=== PATIENT | male | born 1975 | race African-American/Black ===

== ENCOUNTER 2018-04-28 17:09 | Emergency (ER) | payer OTHER ==
[~2018-04-28] VITALS: Ht 172.7 cm; Wt 90.7 kg
[2018-04-28 17:33] LABS: ABSOLUTE BASOPHIL COUNT 0.1 /CUMM (0.0-0.2); ABSOLUTE EOSINOPHIL COUNT 0.2 /CUMM (0.0-0.7); ABSOLUTE GRANULOCYTE CT 4.5 /CUMM (1.4-6.5); ABSOLUTE MONOCYTE COUNT 0.8 /CUMM (0.10-0.60); BASOPHIL % 0.6 % (0.0-2.0); EOSINOPHIL % 1.6 % (0-5); GRANULOCYTE % 48.2 % (42.2-75.2); HEMATOCRIT 46.7 % (42-52); MEAN CORPUSCULAR HGB 27.7 PG (27.0-31.0); MEAN CORPUSCULAR HGB CONC 33.9 G/DL (33.0-37.0); MEAN CORPUSCULAR VOLUME 81.6 FL (80.0-94.0); MEAN PLATELET VOLUME 7.6 FL (7.4-10.4); PLATELET COUNT 319 /CUMM (130-400); RBC DISTRIBUTION WIDTH 14.2 % (11.5-14.5); RED BLOOD CELL CT 5.72 /CUMM (4.70-6.10); WHITE BLOOD CELL COUNT 9.4 /CUMM (4.8-10.8)
[2018-04-28 17:41] LABS: ABSOLUTE LYMPH COUNT 3.8 /CUMM (1.2-3.4)
--- NOTE | 2018-04-28 18:32 | RADIOLOGY REPORT ---
EXAMINATION: XR CHEST CLINICAL INFORMATION: Chest pain COMPARISON: None TECHNIQUE: 2 views of the chest were obtained. FINDINGS: No focal consolidation, pulmonary edema, or pleural effusion. Normal cardiomediastinal silhouette. IMPRESSION: No acute cardiopulmonary findings.
[2018-04-28] MEDS ORDERED: PREVACID15 M1 PO (23:37)
--- NOTE | 2018-04-28 23:53 | ED CARDIAC/CP/PALPITATIONS ---
History of Present Illness General Chief Complaint: Chest Pain Stated Complaint: SIB FOR CP Source: patient Exam Limitations: no limitations Vital Signs & Intake/Output Vital Signs & Intake/Output Vital Signs Date Time Temp Pulse Resp B/P B/P Pulse O2 O2 Flow FiO2 Mean Ox Delivery Rate 04/28 2337 Room Air 04/28 2334 98.3 60 18 171/94 97 Room Air 04/28 1726 98.6 84 18 178/110 98 ED Intake and Output 04/29 0000 04/28 1200 Intake Total Output Total Balance Patient 200 lb Weight Weight Reported by Patient Measurement Method Allergies Coded Allergies: No Known Allergies (11/26/17) Reconcile Medications Lansoprazole (Prevacid) 15 MG CAPSULE.DR Stringer CAP PO DAILY GERD (Reported) Triage Note: TRIAGE: 42 Y/O MALE WITH PMHX OF GERD PRESENTS C/O CHEST DISCOMFORT, "FEELS LIKE THERE'S SOMETHING IN MY THROAT, CHEST, ETC" SINCE MONDAY. DENIES CHEST PAIN. Triage Nurses Notes Reviewed? yes HPI: Patient presents for evaluation of a heavy feeling in the chest that began abruptly yesterday. Patient states it was mild yesterday but seemed to worsen today. The chest pain has been intermittent but patient cannot describe how long the pain episodes occur or for how frequently they occur. He has also had intermittent dizziness and occasional sweating that don't seem to be related to his chest pain episodes. Although he states his voice is "a little different" he denies associated fever or cold symptoms. He has been feeling a "discomfort " in the back of the head and wrapping around to both temples. He currently offers no complaint and states he "seems fine now". He was evaluated at [facility] [place] prior to arrival an EKG was done. Although the EKG was unremarkable he was asked to go to the emergency department for evaluation. Past History Travel History Traveled to [place] past 21 day No Medical History Any Pertinent Medical History? see below for history Neurological: NONE EENT: NONE Cardiovascular: NONE Respiratory: NONE Gastrointestinal: GERD Hepatic: NONE Renal: NONE Musculoskeletal: NONE Psychiatric: NONE Endocrine: NONE Blood Disorders: NONE Cancer(s): NONE B[employer]/Reproductive: NONE History of MRSA: No History of VRE: No History of CDIFF: No Surgical History Surgical History: non-contributory Psychosocial History What is your primary language Jordanian Tobacco Use: Never used ETOH Use: occasional use Illicit Drug Use: denies illicit drug use Family History Hx Contributory? No Review of Systems Review of Systems Constitutional: Reports: diaphoresis. EENTM: Reports: no symptoms. Respiratory: Reports: no symptoms. Cardiovascular: Reports: chest pain. GI: Reports: no symptoms. Genitourinary: Reports: no symptoms. Musculoskeletal: Reports: no symptoms. Skin: Reports: no symptoms. Neurological/Psychological: Reports: no symptoms. Hematologic/Endocrine: Reports: no symptoms. Immunologic/Allergic: Reports: no symptoms. All Other Systems: Reviewed and Negative Physical Exam Physical Exam Cardiovascular: SEE BELOW Comments: Gen.: Well-nourished, well-developed, no acute respiratory distress. Head: Normocephalic, atraumatic. Eyes: Normal inspection bilaterally Ears: Normal inspection bilaterally Nose: Normal inspection Throat/mouth : Moist mucosa Neck: Supple, full range of motion, no goiter Heart: Regular rate and rhythm, no murmurs rubs or gallops Lungs: Clear to auscultation bilaterally with normal air entry Chest: Nontender Back: Normal range of motion Abdomen: Soft, nontender, nondistended, normal bowel sounds Extremities: Normal range of motion grossly, equal radial pulses, no cyanosis clubbing or edema Neurologic: Cranial nerves grossly intact, speech is clear Skin: warm and dry Psychiatric: Calm, cooperative, no apparent delusions or hallucinations Core Measures ACS in differential dx? No CVA/TIA Diagnosis No Sepsis Present: No Sepsis Focused Exam Completed? No Progress Differential Diagnosis: ACUTE CORONARY SYNDROME, DYSRHYTHMIA, MUSCULOSKELETAL CHEST PAIN, ACID REFLUX Plan of Care: Orders Procedure Date/time Status EKG 04/29 0024 Active TROPONIN LEVEL 04/28 2356 Complete EKG 04/28 2356 Active TROPONIN LEVEL 04/28 1716 Complete COMPREHENSIVE METABOLIC PANEL 04/28 1716 Complete CBC WITHOUT DIFFERENTIAL 04/28 1716 Complete EKG 04/28 171 Active Laboratory Tests 04/29/18 0043: Troponin I < 0.01 04/28/18 1720: Anion Gap 7, Estimated GFR > 60, BUN/Creatinine Ratio 16.7, Glucose 85, Calcium 9.8, Total Bilirubin 0.4, AST 22, ALT 44, Alkaline Phosphatase 59, Troponin I < 0.01, Total Protein 6.9, Albumin 4.1, Globulin 2.8, Albumin/Globulin Ratio 1.5, CBC w Diff NO MAN DIFF REQ, RBC 5.72, MCV 81.6, MCH 27.7, MCHC 33.9, RDW 14.2, MPV 7.6, Gran % 48.2, Lymphocytes % 40.9, Monocytes % 8.7, Eosinophils % 1.6, Basophils % 0.6, Absolute Granulocytes 4.5, Absolute Lymphocytes 3.8 H, Absolute Monocytes 0.8 H, Absolute Eosinophils 0.2, Absolute Basophils 0.1 Diagnostic Imaging: Discussed w/RAD: Radiology Read. CXR Impression: no acute abnormality Initial ED EKG: NSR, rate (76), no ST T wave changes Prior EKG: unchanged Repeat EKG: unchanged Comments: 04/29/2018 1:34:15 AM I updated Rock on test results. He agreed to having repeat EKG and troponin done. These are both unchanged. I feel he is now stable for discharge and outpatient follow-up. Departure Departure Disposition: HOME OR SELF CARE Condition: Stable Clinical Impression Primary Impression: Atypical chest pain Referrals: Nader PAVON,Geoff (PCP/Family) Additional Instructions: Follow-up with your primary care physician for reevaluation on Monday. Over-the -counter pain medication as needed for your chest pain. Return if any concerns or sudden worsening. Please note that there might be incidental findings in your evaluation that are unrelated to the current emergency department visit. Please notify your primary care doctor about this emergency department visit in order to obtain and review all of the testing performed so that these incidental findings can be monitored as needed. If you had an x-ray performed, please understand that some fractures or other findings may not be seen on the initial set of x-rays. If your symptoms persist you might need a repeat set of x-rays to check for such a fracture. If you had a laceration evaluated, please understand that foreign bodies such as glass or wood may not be visible to the naked eye or on plain x-rays. If the wound becomes red, swollen, increasingly more painful or if there is any drainage from the wound, please have it reevaluated by a physician for the possibility of a retained foreign body. If you're unable to follow up as outlined in the discharge instructions please return to the emergency department. Thank you for choosing the [facility] Emergency Department for your care. It was a pleasure to serve you today. Tae Palm M.D. [facility] Departure Forms: Customer Survey General Discharge Information Critical Care Note Critical Care Note Critical Care Time: non-applicable
[2018-04-29 01:45] VITALS: BP 162/104
== END 2018-04-29 01:51 ==
LOC: ERH 17:09
PROVIDERS: Physician Assistant
DX: R07.89 Other chest pain (principal)
CPT/HCPCS: 71046; 93005; 93010